=== PATIENT | male | born 1950 | race Caucasian/White ===

== ENCOUNTER 2019-02-23 01:51 | Emergency (ER) | payer SELFPAY ==
[2019-02-23 01:55] VITALS: BP 137/99
[2019-02-23] MEDS ORDERED: LISI5TAB25 PO (01:58)
[2019-02-23] MEDS ORDERED: AMLO-125 PO (01:58)
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
[2019-02-23] MEDS ORDERED: oxyCODON/ACET (*)5/325MG (CII) 1 TAB TAB PO ONE (02:05)
[2019-02-23] MEDS ORDERED: SILVER sulfADI 1% CR 20GM TB TP ONE (02:05)
[2019-02-23] MEDS ORDERED: DIPHTH/TETANUS/ACEL. PERTUSSIS IM ONLY ONE (02:05)
[2019-02-23] MEDS ORDERED: SILV20CR2 TP (02:25)
[2019-02-23] MEDS ORDERED: OXYC-865 PO (02:25)
[2019-02-23] MEDS ORDERED: oxyCODONE/ACETAMIN 5/325MG TH 2 TAB/BOTTLE PO ONE (02:30)
== END 2019-02-23 02:36 | disposition home or self-care (01) ==
LOC: ER 02:20
DX: T20.29XA Burn of second degree of multiple sites of head, face, and neck, initial encounter (principal); T23.202A Burn of second degree of left hand, unspecified site, initial encounter
CPT/HCPCS: 90471; 90715; 99283